=== PATIENT | male | born 1935 | race American Indian/Alaskan Native ===

== ENCOUNTER → 2022-04-07 | Emergency (ER) | payer MEDICARE ==
[~2022-04-07] MED LIST: Budesonide 0.5 MG/2 ML Neb Susp ONE; Doxycycline Monohydrate 100 MG Cap ONE; predniSONE 20 MG Tab ONE
[2022-04-29 07:02] LABS: ANION GAP 9.1 meq/L (7-15); CHLORIDE,CL 99 mmol/L (98-107); ESTIMATED GFR 34 mL/min (>=60); SODIUM,NA 136 mmol/L (136-145)
== END ==
LOC: LL.ED 16:34
DX: J44.1 Chronic obstructive pulmonary disease with (acute) exacerbation (principal); I31.39 Other pericardial effusion (noninflammatory); J90 Pleural effusion, not elsewhere classified
CPT/HCPCS: 36415; 71046; 80053; 85025; 86140; 99285; A9270-GY; J7512

== ENCOUNTER 2022-05-30 08:39 | Inpatient (IN) | payer OTHER, MEDICARE ==
[2022-05-30 10:17] LABS: ANION GAP 9.5 meq/L (7-15)
[2022-05-30] MEDS ORDERED: Sodium Chloride 0.9% 10 ML Syringe FLUSH PRN (11:52)
[2022-05-30] MEDS ORDERED: Ondansetron 4 MG/2 ML SDV IVPUSH PRN (11:52)
[2022-05-30] MEDS ORDERED: Acetaminophen 325 MG Tab PO PRN (11:52)
[2022-05-30] MEDS: Ciprofloxacin 500 MG Tab PO SCH (12:38)
[2022-05-30] MEDS: Bumetanide 1 MG Tab PO SCH (12:38)
[2022-05-30] MEDS: Formoterol/Mometasone 200-5 MCG 8.8 GM Inhaler IH SCH (17:24)
[2022-05-30] MEDS: Apixaban 5 MG Tab PO SCH (17:25)
[2022-05-30] MEDS: Albuterol 0.083% 2.5 MG/3 ML Neb Soln INH SCH (17:25)
[2022-05-30] MEDS: Tiotropium Bromide 4 GM Inhalation Spray (2.5mcg/1 dose; 10 doses) INH SCH (19:49)
[2022-05-30] MEDS: Allopurinol 100 MG Tab PO SCH (19:49)
[2022-05-30] MEDS: Montelukast 10 MG Tab PO SCH (19:49)
[2022-05-30] MEDS: Terazosin 5 MG Cap PO SCH (19:55)
[2022-05-30] MEDS: Melatonin 3 MG Tab PO PRN (22:43)
[2022-05-31] MEDS: Diltiazem 120 MG Cap.CD PO SCH (07:44)
[2022-05-31] MEDS: Bumetanide 1 MG Tab PO SCH ×2 (07:44→11:52)
[2022-05-31] MEDS: Ciprofloxacin 500 MG Tab PO SCH (07:46)
[2022-05-31] MEDS: Famotidine 20 MG Tab PO SCH (07:47)
[2022-05-31] MEDS: Apixaban 5 MG Tab PO SCH ×2 (07:47→17:18)
[2022-05-31] MEDS: Sennosides 8.6 MG Tab PO SCH (07:48)
[2022-05-31] MEDS: Albuterol 0.083% 2.5 MG/3 ML Neb Soln INH SCH ×2 (07:48→20:13)
[2022-05-31] MEDS: Formoterol/Mometasone 200-5 MCG 8.8 GM Inhaler IH SCH ×2 (07:49→17:19)
[2022-05-31] MEDS: Multivitamin Tab PO SCH (07:49)
[2022-05-31] MEDS ORDERED: diphenhydrAMINE 25 MG Cap PO PRN (19:41)
[2022-05-31] MEDS: Terazosin 5 MG Cap PO SCH (20:12)
[2022-05-31] MEDS: Montelukast 10 MG Tab PO SCH (20:12)
[2022-05-31] MEDS: Allopurinol 100 MG Tab PO SCH (20:13)
[2022-05-31] MEDS: Tiotropium Bromide 4 GM Inhalation Spray (2.5mcg/1 dose; 10 doses) INH SCH (20:13)
[2022-06-01] MEDS: Famotidine 20 MG Tab PO SCH (07:21)
[2022-06-01] MEDS: Multivitamin Tab PO SCH (07:21)
[2022-06-01] MEDS: Bumetanide 1 MG Tab PO SCH ×2 (07:21→12:44)
[2022-06-01] MEDS: Ciprofloxacin 500 MG Tab PO SCH (07:22)
[2022-06-01] MEDS: Formoterol/Mometasone 200-5 MCG 8.8 GM Inhaler IH SCH ×2 (07:22→18:30)
[2022-06-01] MEDS: Albuterol 0.083% 2.5 MG/3 ML Neb Soln INH SCH ×2 (07:22→20:03)
[2022-06-01] MEDS: Sennosides 8.6 MG Tab PO SCH (07:22)
[2022-06-01] MEDS: Diltiazem 120 MG Cap.CD PO SCH (07:22)
[2022-06-01] MEDS: Apixaban 5 MG Tab PO SCH ×2 (07:24→18:29)
[2022-06-01 08:03] LABS: ANION GAP 11.3 meq/L (7-15)
[2022-06-01] MEDS: Montelukast 10 MG Tab PO SCH (20:01)
[2022-06-01] MEDS: Allopurinol 100 MG Tab PO SCH (20:01)
[2022-06-01] MEDS: Terazosin 5 MG Cap PO SCH (20:02)
[2022-06-01] MEDS: Tiotropium Bromide 4 GM Inhalation Spray (2.5mcg/1 dose; 10 doses) INH SCH (20:16)
[2022-06-02] MEDS ORDERED: Sodium Chloride 0.65% Nasal Spray 45 ML Bottle NAS PRN (00:19)
[2022-06-02] MEDS: Melatonin 3 MG Tab PO PRN (00:34)
[2022-06-02] MEDS: Formoterol/Mometasone 200-5 MCG 8.8 GM Inhaler IH SCH (07:27)
[2022-06-02] MEDS: Albuterol 0.083% 2.5 MG/3 ML Neb Soln INH SCH (07:27)
[2022-06-02] MEDS: Famotidine 20 MG Tab PO SCH (07:28)
[2022-06-02] MEDS: Sennosides 8.6 MG Tab PO SCH (07:28)
[2022-06-02] MEDS: Multivitamin Tab PO SCH (07:28)
[2022-06-02] MEDS: Diltiazem 120 MG Cap.CD PO SCH (07:29)
[2022-06-02] MEDS: Bumetanide 1 MG Tab PO SCH ×2 (07:29→11:08)
[2022-06-02] MEDS: Apixaban 5 MG Tab PO SCH (07:30)
[2022-06-02] MEDS: Ciprofloxacin 500 MG Tab PO SCH (07:30)
[2022-06-02 07:34] LABS: ANION GAP 10.1 meq/L (7-15)
[2022-06-02] MEDS ORDERED: Docusate Sodium 100 MG Cap PO ONE (11:14)
[2022-06-02] MEDS ORDERED: Polyethylene Glycol 3350 Powder 17 GM Packet PO ONE (11:14)
== END 2022-06-02 12:02 | DRG 291 ==
LOC: SUPCPDRO 08:39 → LL.ED 08:39 → LL.MS 11:37
PROVIDERS: ADMIT Hospitalist; ATTEND Physician Assistant
DX: I13.0 Hypertensive heart and chronic kidney disease with heart failure and stage 1 through stage 4 chronic kidney disease, or unspecified chronic kidney disease (principal); I50.33 Acute on chronic diastolic (congestive) heart failure; J96.21 Acute and chronic respiratory failure with hypoxia; J91.8 Pleural effusion in other conditions classified elsewhere; N30.00 Acute cystitis without hematuria; Z66 Do not resuscitate; I48.0 Paroxysmal atrial fibrillation; K21.9 Gastro-esophageal reflux disease without esophagitis; J44.9 Chronic obstructive pulmonary disease, unspecified; N18.32 Chronic kidney disease, stage 3b; D63.1 Anemia in chronic kidney disease; E78.2 Mixed hyperlipidemia; N40.0 Benign prostatic hyperplasia without lower urinary tract symptoms; J30.9 Allergic rhinitis, unspecified; I73.9 Peripheral vascular disease, unspecified; M10.9 Gout, unspecified; I05.0 Rheumatic mitral stenosis; E88.09 Other disorders of plasma-protein metabolism, not elsewhere classified; Z79.01 Long term (current) use of anticoagulants; Z79.899 Other long term (current) drug therapy; Z87.891 Personal history of nicotine dependence
CPT/HCPCS: 36415; 71046; 80048; 80053; 81001; 83735; 83880; 85025; 85027; 86140; 87086; 87088; 87186; 94640; 94761; 99239; 99285; A9270-GY; J7613-GY

== ENCOUNTER 2022-06-06 17:50 | Inpatient (IN) | payer MEDICARE, OTHER ==
[2022-06-06] MEDS ORDERED: Polyethylene Glycol 3350 Powder 17 GM Packet PO PRN (19:49)
[2022-06-06] MEDS ORDERED: Acetaminophen 325 MG Tab PO PRN (19:49)
[2022-06-06] MEDS ORDERED: Ondansetron 4 MG/2 ML SDV IVPUSH PRN (19:49)
[2022-06-06] MEDS ORDERED: Albuterol 6.7 GM Inhaler INH PRN (19:52)
[2022-06-06] MEDS ORDERED: Montelukast 10 MG Tab PO SCH (20:00)
[2022-06-06] MEDS ORDERED: MENTHOL PO SCH (20:00)
[2022-06-06] MEDS ORDERED: BENZOCAINE PO SCH (20:00)
[2022-06-06] MEDS ORDERED: Allopurinol 100 MG Tab PO SCH (20:00)
[2022-06-06] MEDS ORDERED: Terazosin 5 MG Cap PO SCH (20:00)
[2022-06-06] MEDS: Bumetanide 1 MG Tab PO SCH (21:38)
[2022-06-06] MEDS: Albuterol/Ipratropium 3.0-0.5 MG/3 ML Neb Soln NEB SCH (21:45)
[2022-06-07] MEDS: Albuterol/Ipratropium 3.0-0.5 MG/3 ML Neb Soln NEB SCH ×3 (01:20→14:58)
[2022-06-07] MEDS ORDERED: LORazepam 0.5 MG Tab PO ONE (02:36)
[2022-06-07] MEDS ORDERED: Apixaban 2.5 MG Tab PO SCH (08:00)
[2022-06-07] MEDS ORDERED: Multivitamin Tab PO SCH (08:00)
[2022-06-07] MEDS ORDERED: Diltiazem 120 MG Cap.CD PO SCH (08:00)
[2022-06-07] MEDS ORDERED: TIOTROPIUM 18 MCG PO SCH (08:00)
[2022-06-07] MEDS ORDERED: Famotidine 20 MG Tab PO SCH (08:00)
[2022-06-07] MEDS ORDERED: Formoterol/Mometasone 200-5 MCG 8.8 GM Inhaler IH SCH (08:00)
[2022-06-07] MEDS: Bumetanide 1 MG Tab PO SCH ×2 (08:19→12:58)
[2022-06-07 09:21] LABS: ANION GAP 12.6 meq/L (7-15)
[2022-06-07] MEDS ORDERED: Haloperidol Lactate 5 MG/ML SDV IM ONE (10:13)
[2022-06-07] MEDS ORDERED: LORazepam 2 MG/ML SDV IVPUSH ONE ×2 (12:10→14:29)
[2022-06-07] MEDS ORDERED: Piperacillin/Tazobactam 4.5 GM in Sodium Chloride 0.9% 100 ML IV ONE (12:45)
[2022-06-07] MEDS ORDERED: Piperacillin/Tazobactam 3.375 GM in Sodium Chloride 0.9% 100 ML IV SCH (20:00)
== END 2022-06-07 14:50 | DRG 193 ==
LOC: LL.ED 17:50 → LL.MS 19:10
PROVIDERS: ADMIT Hospitalist; ATTEND Emergency Medicine
DX: J18.9 Pneumonia, unspecified organism (principal); I50.33 Acute on chronic diastolic (congestive) heart failure; J96.21 Acute and chronic respiratory failure with hypoxia; R79.89 Other specified abnormal findings of blood chemistry; Z66 Do not resuscitate; N18.32 Chronic kidney disease, stage 3b; N40.0 Benign prostatic hyperplasia without lower urinary tract symptoms; I48.0 Paroxysmal atrial fibrillation; N40.1 Benign prostatic hyperplasia with lower urinary tract symptoms; K21.9 Gastro-esophageal reflux disease without esophagitis; Z20.822 Contact with and (suspected) exposure to COVID-19; J44.9 Chronic obstructive pulmonary disease, unspecified; D63.1 Anemia in chronic kidney disease; J90 Pleural effusion, not elsewhere classified; E78.00 Pure hypercholesterolemia, unspecified; E21.3 Hyperparathyroidism, unspecified; M10.9 Gout, unspecified; E78.2 Mixed hyperlipidemia; I48.91 Unspecified atrial fibrillation; I05.0 Rheumatic mitral stenosis; E88.09 Other disorders of plasma-protein metabolism, not elsewhere classified; E11.22 Type 2 diabetes mellitus with diabetic chronic kidney disease; Z99.81 Dependence on supplemental oxygen; Z79.01 Long term (current) use of anticoagulants; Z79.899 Other long term (current) drug therapy; Z86.010 Personal history of colon polyps; Z87.891 Personal history of nicotine dependence
CPT/HCPCS: 36415; 70450; 71045; 80048; 81003; 82803; 83605; 83735; 84484; 85027; 93005; 94640; 94761; A9270-GY; J1630; J2060; J2543; J7620-GY; U0002

== ENCOUNTER 2022-08-23 10:13 | Emergency (ER) | payer OTHER, MEDICARE ==
[2022-08-23] MEDS ORDERED: Sodium Chloride 0.9% 10 ML Syringe FLUSH PRN (10:30)
[2022-08-23 11:32] LABS: ANION GAP 11.6 meq/L (7-15)
== END 2022-08-23 12:55 | disposition home or self-care (01) ==
LOC: LL.ED 10:13
DX: I13.0 Hypertensive heart and chronic kidney disease with heart failure and stage 1 through stage 4 chronic kidney disease, or unspecified chronic kidney disease (principal); N18.9 Chronic kidney disease, unspecified; I50.33 Acute on chronic diastolic (congestive) heart failure; D63.1 Anemia in chronic kidney disease; I48.91 Unspecified atrial fibrillation; J44.9 Chronic obstructive pulmonary disease, unspecified; K21.9 Gastro-esophageal reflux disease without esophagitis; M10.9 Gout, unspecified; Z87.891 Personal history of nicotine dependence; Z88.1 Allergy status to other antibiotic agents; Z79.899 Other long term (current) drug therapy; Z79.01 Long term (current) use of anticoagulants
CPT/HCPCS: 36415; 71046; 80053; 81003; 83605; 83880; 85025; 86140; 99284; 99285